=== PATIENT | female | born 1995 | race Caucasian/White ===

== ENCOUNTER 2019-08-04 18:03 | Emergency (ER) | payer MEDICAID ==
[~2019-08-04] VITALS: Ht 160 cm; Wt 59.5 kg
[2019-08-04] MEDS ORDERED: HYDROcodone/acetaminophen 5mg/325mg tablet PO ONE (19:30)
[2019-08-04] MEDS ORDERED: ketorolac tromethamine 15mg/ml inj. IM ONE (19:35)
[2019-08-04] MEDS ORDERED: AMOX500C2 PO (19:36)
[2019-08-04] MEDS ORDERED: CHLO473M3 PO (19:36)
[2019-08-04 19:50] VITALS: BP 129/92
== END 2019-08-04 19:51 | disposition home or self-care (01) ==
LOC: ER 18:04
DX: K02.9 Dental caries, unspecified (principal)
CPT/HCPCS: 96372; 99283; J1885

== ENCOUNTER 2020-12-04 03:20 | Emergency (ER) | payer MEDICAID ==
[~2020-12-04] VITALS: Ht 160 cm; Wt 54.0 kg
[~2020-12-04 03:20] MED LIST: CHLO473M3 PO
[2020-12-04 03:27] VITALS: BP 144/90
[2020-12-04] MEDS ORDERED: HYDROcodone/acetaminophen 5mg/325mg tablet PO ONE (03:55)
[2020-12-04] MEDS ORDERED: amox tr/potassium clavulanate 875/125mg TAB PO ONE (03:55)
[2020-12-04] MEDS ORDERED: NAPR-56 PO (04:00)
[2020-12-04] MEDS ORDERED: HYDR-3965 PO (04:00)
[2020-12-04] MEDS ORDERED: AMOX-422 PO (04:00)
[2020-12-04] MEDS ORDERED: LIDOcaine 1% W/epiNEPHrine 1:200,000 10ml vial IJ ONE (04:00)
== END 2020-12-04 04:32 | disposition home or self-care (01) ==
LOC: ER 03:20
DX: K04.7 Periapical abscess without sinus (principal)
CPT/HCPCS: 64400; 99284